=== PATIENT | male | born 1960 | race Caucasian/White ===

== ENCOUNTER 2021-08-06 07:42 | Observation (INO) | payer OTHER ==
[2021-08-06] MEDS: SODIUM CHLORIDE 0.9% 500 ML 500 ML IV SCH ×3 (08:50→10:42)
--- NOTE | 2021-08-06 08:52 | Electrocardiograph Report ---
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
[2021-08-06] MEDS ORDERED: ASPIRIN EC 325 MG TAB PO SCH (09:00)
[2021-08-06] MEDS ORDERED: MIDAZOLAM 2 MG/2 ML INJ ONE (09:35)
[2021-08-06] MEDS ORDERED: VERAPAMIL 5 MG/2 ML INJ ONE (09:36)
[2021-08-06] MEDS ORDERED: LIDOCAINE (2%) 20 MG/1 ML VIAL 20 ML MDV INFILTRATI ONE (09:36)
[2021-08-06] MEDS: fentaNYL 100 MCG/2 ML INJ ONE ×2 (10:01→10:42)
[2021-08-06] MEDS: HEPARIN 10,000 UNITS/10 ML VIAL ONE ×2 (10:04→10:11)
[2021-08-06] MEDS: NITROGLYCERIN SYRINGE 3 ML ONE ×4 (10:04→10:46)
[2021-08-06] MEDS: HEPARIN/NS 5000 UNIT/500ML 1,000 ML IR ONE ×2 (10:05→10:46)
[2021-08-06] MEDS ORDERED: SODIUM CHLORIDE 0.9% 500 ML 500 ML ONE (10:23)
[2021-08-06] MEDS ORDERED: CLOPIDOGREL 300 MG TAB ONE (10:38)
[2021-08-06] MEDS ORDERED: ALUM-MAG HYDROXIDE-SIMETHICONE 200-200-20MG/5ML ORAL LIQD 30 ML ONE (10:39)
[2021-08-06] MEDS ORDERED: HYDROcodone/ACETAMINOPHEN 5-325 MG TAB PO PRN (11:06)
[2021-08-06] MEDS ORDERED: ACETAMINOPHEN 325 MG TAB PO PRN (11:06)
--- NOTE | 2021-08-06 11:18 | Short Stay Summary ---
<NOLA HELTON SANJIV - Last Filed: 08/06/21 13:54> Short Stay Documentation Date of service: 08/06/21 - History H&P: obtained from office - Allergies and Medications Current Medications: Allergies No Known Allergies Allergy (Verified 08/06/21 08:22) Home Medications Medication Instructions Recorded Confirmed Last Taken Type Aspirin EC [Halfprin EC] 81 mg PO DAILY 08/06/21 08/06/21 08/05/21 History 81 mg AtorvaSTATin 10 mg PO HS 08/06/21 08/06/21 08/05/21 History 10 mg Isosorbide Dinitrate [Isordil] 10 mg PO DAILY 08/06/21 08/06/21 08/05/21 History 10 mg amLODIPine 5 mg PO DAILY 08/06/21 08/06/21 08/05/21 History 5 mg Active Medications Aspirin (Aspirin Ec 325 Mg Tab) 325 mg PO ONCE@0900 YUDI Stop: 08/06/21 17:00 Last Admin: 08/06/21 08:50 Dose: 325 mg Sodium Chloride (Nacl 0.9% 500 Ml) 500 mls @ 50 mls/hr IV DIRECT YUDI Stop: 08/06/21 18:59 Last Admin: 08/06/21 10:42 Dose: 50 mls/hr - Physical exam Integumentary: other (Dressing clean dry and intact. No signs of bleeding or) - Brief post op/procedure progress note Date of procedure: 08/06/21 Pre-op diagnosis: Chest pain Post-op diagnosis: other (Coronary artery disease) Anesthesia: local Estimated blood loss: minimal (status post angioplasty) - Hospital course Hospital course: Patient presented for cardiac cath to radial side. Patient had PCI to RCA. Patient tolerated procedure well - Disposition Condition at discharge: Good - Discharge Diagnoses (1) CAD (coronary atherosclerotic disease) Status: Acute (2) HTN (hypertension) Status: Acute (3) HLD (hyperlipidemia) Status: Acute Short Stay Discharge Plan Activity: advance as tolerated Diet: low fat, low cholesterol, low salt Wound: keep clean and dry, per your surgeon's advice Follow up with: MICHELLE FRANCIS MD [Primary Care Provider] - 7 Days SALAZAR HICKMAN MD [Staff Physician] - 08/25/21 3:30 pm (Patient has a follow- up appointment with Dr. Hickman on 08/25/2021 at 3:30 PM at our [place] location. Phone #[phone]) <SALAZAR HICKMAN R - Last Filed: 08/07/21 08:42> Short Stay Documentation - Allergies and Medications Current Medications: Allergies No Known Allergies Allergy (Verified 08/06/21 08:22) Home Medications Medication Instructions Recorded Confirmed Last Taken Type Aspirin EC [Halfprin EC] 81 mg PO DAILY 08/06/21 08/06/21 08/05/21 History 81 mg AtorvaSTATin 10 mg PO HS 08/06/21 08/06/21 08/05/21 History 10 mg Isosorbide Dinitrate [Isordil] 10 mg PO DAILY 08/06/21 08/06/21 08/05/21 History 10 mg amLODIPine 5 mg PO DAILY 08/06/21 08/06/21 08/05/21 History 5 mg Active Medications Acetaminophen (Acetaminophen 325 Mg Tab) 650 mg PO Q4H PRN PRN Reason: Pain MILD(1-3)/Fever >100.5/YI Hydrocodone Bitart/Acetaminophen (Hydrocodone/Acetaminophen 5-325 Mg Tab) 1 each PO Q6H PRN PRN Reason: Pain, Moderate (4-6) Amlodipine Besylate (Amlodipine 5 Mg Tab) 5 mg PO QDAY [facility] Last Admin: 08/06/21 19:01 Dose: Not Given Aspirin (Aspirin 81 Mg Tab Chew) 81 mg PO QDAY [facility] Atorvastatin Calcium (Atorvastatin 10 Mg Tab) 10 mg PO QHS [facility] Last Admin: 08/06/21 21:59 Dose: 10 mg Clopidogrel Bisulfate (Clopidogrel 75 Mg Tab) 75 mg PO QDAY [facility] - Discharge Diagnoses (1) Acute systolic (congestive) heart failure Status: Acute (2) CAD S/P percutaneous coronary angioplasty Status: Acute (3) CAD (coronary atherosclerotic disease) Status: Acute Qualifiers: Coronary Disease-Associated Artery/Lesion type: [place] artery Associated angina: with stable angina (4) HLD (hyperlipidemia) Status: Chronic Qualifiers: Hyperlipidemia type: mixed hyperlipidemia Qualified Code(s): E78.2 - Mixed hyperlipidemia (5) HTN (hypertension) Status: Chronic Qualifiers: Hypertension type: primary hypertension Qualified Code(s): I10 - Essential (primary) hypertension
--- NOTE | 2021-08-06 11:45 | Cardiac Catherization Report ---
DATE OF SERVICE: 08/06/2021 LEFT HEART CATHETERIZATION/PERCUTANEOUS CORONARY INTERVENTION REPORT CLINICAL INFORMATION: This is a 61-year-old male with hypertension, hyperlipidemia, some exertional anginal symptoms despite medical therapy with positive treadmill stress test, could not tolerate nitrates, is not on beta latisha secondary to low heart rate. Procedure was done with moderate sedation started at 10:00, finished at 10:37, 37 minutes of moderate sedation. DESCRIPTION OF PROCEDURE: Procedure was done via the right radial artery, sterile technique and local anesthesia. A 6-Somali radial sheath inserted. Left system engaged with a JL3.5 catheter. Left main is large and patent, bifurcates into large LAD that is patent. Diagonal 1 is medium to large caliber was patent. Circumflex mid is 100% with faint left to left collaterals feeding distal circumflex and OM1. RCA engaged with JR4 is a large, dominant vessel was patent. PDA, PLV are medium caliber and patent. LV gram done in [place] and [place]BSON view, shows normal LV function, EF 55-60%, LVEDP of 24 mmHg, LV is 141, aortic is 141/84. No gradient across the aortic valve on pullback. We proceeded with percutaneous coronary intervention of circumflex. 1. Engaged the left system, an EBU 3.5 guiding catheter. 2. Achieved adequate ACT with IV heparin. 3. Unable to cross with a Runthrough, then used a Refrigeration Unit Repairer 50 with 1.5 x 12 mm balloon as backup and able to cross into the distal circumflex, then ballooned with a 1.5 x 12 x3 inflations at 15 atmospheres. 4. LOUISE 3 flow now and stenosis noted down to 95% in the mid circumflex after the bifurcation of OM1. 5. Stent ballooned further with a 2.0 x 15 balloon. 6. Intravascular ultrasound showed distal reference vessel of 3.0 and proximally 3.5. 7. Stented with a drug-eluting Resolute 3.0 x 18 mm across the OM1 and inflated at 12 atmospheres. 8. Postdilated the proximal portion of the stent with a 3.5 x 12 mm noncompliant balloon at 12 atmospheres. Excellent angiographic result, LOUISE 3 flow. No stenosis in the OM1 and large caliber distal circumflex. 9. Remove coronary wire multiple angiograms, LOUISE 3 flow. No dissection, perforation or embolization noted. 10. A 6-Somali guiding catheter taken over a guidewire. A 6-Somali radial sheath was discontinued. Radial band applied. No hematoma, no bleeding. SUMMARY: 1. Successful percutaneous coronary intervention of 100% circumflex with a drug-eluting Resolute [place] 3.0 x 18 mm, postdilated with 3.5 x 12. 2. Coronary angiographically, left main, patent, LAD patent, RCA patent, diagonal patent with normal LV function. 3. Post-PCI care. The patient was loaded with Plavix. Discussed this with the patient and the patient's family in detail. TID: [id number] RECEIPT: [id number] VRM/STD
[2021-08-06] MEDS ORDERED: SODIUM CHLORIDE 0.9% 1000 ML 1,000 ML ONE (12:04)
[2021-08-06] MEDS ORDERED: SODIUM CHLORIDE 0.9% 1000 ML 1,000 ML IV SCH (12:30)
[2021-08-06] MEDS: amLODIPine 5 MG TAB PO SCH (19:01)
[2021-08-07 04:49] VITALS: BP 108/64
[2021-08-07 06:24] LABS: Basophils # (Auto) 0.1 K/mm3 (0.0-0.1); Basophils % (Auto) 0.8 % (0.0-1.8); Eosinophils # (Auto) 0.2 K/mm3 (0.0-0.4); Eosinophils % (Auto) 2.5 % (0.0-4.3); Hematocrit 43.5 % (35.5-45.6); Hemoglobin 14.1 gm/dl (11.8-15.2); Lymphocytes # (Auto) 2.3 K/mm3 (1.2-5.4); Lymphocytes % (Auto) 29.8 % (13.4-35.0); Mean Corpuscular HGB Conc 33 % (32-34); Mean Corpuscular Volume 88 fl (84-94); Monocytes # (Auto) 0.7 K/mm3 (0.0-0.8); Monocytes % (Auto) 9.6 % (0.0-7.3); Platelet Count 264 K/mm3 (140-440); Red Blood Count 4.97 M/mm3 (3.65-5.03); Red Cell Distribution Width 13.8 % (13.2-15.2)
[2021-08-07 06:26] LABS: BUN/Creatinine Ratio 10; Blood Urea Nitrogen 8 mg/dL (9-20); Calcium 8.9 mg/dL (8.4-10.2); Hemolysis Index 3
--- NOTE | 2021-08-07 08:36 | XRay Report ---
XR chest 1V ap INDICATION / CLINICAL INFORMATION: post pci COMPARISON: None available. FINDINGS: SUPPORT DEVICES: None. HEART / MEDIASTINUM: No significant abnormality. LUNGS / PLEURA: Lungs are clear. Costophrenic sulci are sharp. No pneumothorax. ADDITIONAL FINDINGS: No significant additional findings. IMPRESSION: 1. No acute findings. Signer Name: Maximo Ny MD Signed: 08/07/2021 8:32 AM Workstation Name: [id number]
[2021-08-07] MEDS: amLODIPine 5 MG TAB PO SCH (09:33)
[2021-08-07] MEDS ORDERED: ASPIRIN 81 MG TAB CHEW PO SCH (10:00)
[2021-08-07] MEDS ORDERED: CLOPIDOGREL 75 MG TAB PO SCH (10:00)
--- NOTE | 2021-08-07 10:02 | Progress Note ---
Assessment and Plan Patient cardiac status stable for discharge Patient instructed on importance of dual antiplatelet therapy and risk of complications if noncompliant Patient verbalized understanding and agreement. Patient has a follow-up appointment with Dr. Hickman on 08/25/2021 at 3:30 PM at our [place] location. Phone #[phone] Patient seen in conjunction with Dr. Hickman who agrees with this plan of care - Patient Problems (1) CAD (coronary atherosclerotic disease) Status: Acute Qualifiers: Coronary Disease-Associated Artery/Lesion type: [place] artery Associated angina: with stable angina (2) HTN (hypertension) Status: Chronic Qualifiers: Hypertension type: primary hypertension Qualified Code(s): I10 - Essential (primary) hypertension (3) HLD (hyperlipidemia) Status: Chronic Qualifiers: Hyperlipidemia type: mixed hyperlipidemia Qualified Code(s): E78.2 - Mixed hyperlipidemia Subjective Date of service: 08/07/21 Principal diagnosis: CAD Interval history: Patient resting in bed in no acute distress Patient sinus 68 on monitor Objective Vital Signs Temp Pulse Resp BP Pulse Ox 08/07/21 08:57 97 08/07/21 04:00 57 L 08/07/21 03:40 98.2 F 64 16 108/64 96 08/07/21 00:02 97 08/06/21 23:31 98.4 F 78 16 112/78 97 08/06/21 20:02 75 08/06/21 19:43 98.4 F 70 16 135/67 95 08/06/21 16:19 97.9 F 64 18 140/78 97 08/06/21 13:14 97.7 F 68 18 147/81 98 08/06/21 12:30 62 18 129/73 97 08/06/21 12:00 62 21 134/82 98 08/06/21 11:45 78 14 108/81 96 08/06/21 11:30 67 18 116/77 98 08/06/21 11:15 65 21 118/70 97 08/06/21 11:00 67 14 144/65 98 08/06/21 10:57 97.8 F 69 15 129/82 98 - Physical Examination General: No Apparent Distress HEENT: Positive: PERRL, Normocephaly Cardiac: Positive: Reg Rate and Rhythm Lungs: Positive: Normal Breath Sounds Neuro: Positive: Grossly Intact Abdomen: Positive: Soft Skin: Negative: Rash, Suspicious Lesions, Ulceration Incision: Cardiac Cath Site (Dressing clean dry and intact no signs of bleeding or hematoma) Extremities: Present: normal, upper extr. pulses - Labs and Meds CBC 08/07/21 Range/Units 04:39 WBC 7.6 (4.5-11.0) K/mm3 RBC 4.97 (3.65-5.03) M/mm3 Hgb 14.1 (11.8-15.2) gm/dl Hct 43.5 (35.5-45.6) % Plt Count 264 (140-440) K/mm3 Lymph # (Auto) 2.3 (1.2-5.4) K/mm3 [place] # (Auto) 0.7 (0.0-0.8) K/mm3 Eos # (Auto) 0.2 (0.0-0.4) K/mm3 Baso # (Auto) 0.1 (0.0-0.1) K/mm3 Comprehensive Metabolic Panel 08/07/21 Range/Units 04:39 Sodium 140 (137-145) mmol/L Potassium 4.0 (3.6-5.0) mmol/L Chloride 105.2 (98-107) mmol/L Carbon Dioxide 23 (22-30) mmol/L BUN 8 L (9-20) mg/dL Creatinine 0.8 (0.8-1.3) mg/dL Glucose 103 H (75-100) mg/dL Calcium 8.9 (8.4-10.2) mg/dL - Imaging and Cardiology Cardiac cath: report reviewed - Telemetry EKG Rhythm: Sinus Rhythm - EKG Sinus rhythms and dysrhythmias: sinus rhythm
--- NOTE | 2021-08-07 10:24 | Electrocardiograph Report ---
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
--- NOTE | 2021-08-07 10:28 | Electrocardiograph Report ---
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
== END 2021-08-07 09:42 | disposition home or self-care (01) ==
LOC: CATHLABREC 07:42 → 4A 11:06
PROVIDERS: ADMIT Internal Medicine; ATTEND Internal Medicine
DX: I25.10 Atherosclerotic heart disease of native coronary artery without angina pectoris (principal); I11.0 Hypertensive heart disease with heart failure; I50.21 Acute systolic (congestive) heart failure; E78.5 Hyperlipidemia, unspecified; Z98.61 Coronary angioplasty status; Z79.82 Long term (current) use of aspirin; Z95.1 Presence of aortocoronary bypass graft
CPT/HCPCS: 36415; 71045; 80048; 84484; 85025; 93005; 93010; 93458; 99152; 99153; C1725; C1753; C1769; C1874; C1887; C1894; C9600; G0378; J1644; J1815; J2250; J3010; J3490; J7040; 92928; 92978; Q0162; J7030; Q9967